=== PATIENT | male | born 1960 | race Caucasian/White ===

== ENCOUNTER 2022-05-07 01:18 | Outpatient (CLI) | payer OTHER, SELFPAY | END 2022-05-07 01:19 | disposition home or self-care (01) | LOC: FBOREF 05-10 11:22 | PROVIDERS: PCP Family Medicine; Visit Provider Family Medicine | DX: R35.0 Frequency of micturition (principal); N39.0 Urinary tract infection, site not specified | CPT/HCPCS: 87086; 87186 ==

== ENCOUNTER 2022-07-31 11:21 | Outpatient (CLI) | payer OTHER, SELFPAY | END 2022-07-31 11:22 | disposition home or self-care (01) | PROVIDERS: PCP Family Medicine; Visit Provider Family Medicine | DX: R39.9 Unspecified symptoms and signs involving the genitourinary system (principal) | CPT/HCPCS: 87086; 87186 ==

== ENCOUNTER 2023-01-09 11:48 | Outpatient (CLI) | payer OTHER, SELFPAY | END 2023-01-09 11:49 | disposition home or self-care (01) | PROVIDERS: PCP Family Medicine; Visit Provider Family Medicine | DX: Z01.818 Encounter for other preprocedural examination (principal) | CPT/HCPCS: 80048; 81015; 84153; 85025; 87086; 87186 ==

== ENCOUNTER 2023-07-26 06:49 | Outpatient (CLI) | payer OTHER, SELFPAY | END 2023-07-26 06:50 | disposition home or self-care (01) | PROVIDERS: PCP Family Medicine; Visit Provider Family Medicine | DX: N39.0 Urinary tract infection, site not specified (principal); R30.0 Dysuria; N31.9 Neuromuscular dysfunction of bladder, unspecified | CPT/HCPCS: 87086; 87186 ==

== ENCOUNTER 2023-07-30 11:11 | Emergency (ER) | payer OTHER, SELFPAY ==
[2023-07-30 11:15] VITALS: BP 103/60; PULSE 75; RESP 18; TEMP 36.2; O2SAT 98; BMI 26.6
[2023-07-30 12:01] VITALS: RESP 16; O2SAT 98
--- NOTE | 2023-07-30 12:04 | ED.GENADULT ---
HPI - General Adult General Date Seen: 07/30/23 Chief complaint: Unspecified Complaint, Adult Stated complaint: Infection R buttock Time Seen by Provider: 07/30/23 11:49 Source: patient, RN notes reviewed and old records reviewed Mode of arrival: wheelchair Limitations: no limitations History of Present Illness HPI narrative: Is a 63-year-old male who is a T4 paraplegic. He was seen in clinic he says on Saturday, at that time had been having fevers, history of UTI, a UA was abnormal and culture grew out Enterobacter which was sensitive to Bactrim. He also was noted to have a pressure ulcer at that time and a referral to wound clinic was placed, that appointment is for tomorrow. He has been taking the Bactrim, felt that the pressure ulcer was doing okay at but the past few days seems to be getting much more red and inflamed. He says his temperatures have been all over the place, as high as 102. He has not had chills or vomiting. Does not smoke or drink. Lives at with his dad. Related Data Previous Rx's Medication Instructions Recorded esomeprazole magnesium 40 mg 40 mg PO QDAY #90 caps 05/10/22 capsule,delayed release simethicone 500 mg capsule 500 mg PO QDAY #30 caps 07/31/22 wheat dextrin 3 gram/3.8 gram oral 3 g PO BID #475 grams 07/31/22 powder (Benefiber Sugar Free (dextrin)) baclofen 20 mg tablet 20 mg PO Q6H PRN for muscle spasm 05/06/23 #360 tabs silver sulfadiazine 1 % topical 1 applic topical BID #50 grams 05/14/23 cream escitalopram oxalate 10 mg tablet 10 mg PO QDAY #90 tabs 07/04/23 (Lexapro) temazepam 30 mg capsule 30 mg PO QHS PRN sleep #30 caps 07/21/23 sulfamethoxazole 800 1 tab PO BID 10 days #20 tabs 07/26/23 mg-trimethoprim 160 mg tablet (Bactrim DS) Allergies Allergy/AdvReac Type Severity Reaction Status Date / Time nitrofurantoin AdvReac Rash Verified 01/09/23 11:31 Review of Systems Status of ROS: Reports: 10 or more systems reviewed and unremarkable except as noted in History and below [facility] Medical History Spasticity ?R25.2 - Cramp and spasm (ICD-10) Frequent loose stools ?R19.7 - Diarrhea, unspecified (ICD-10) Neurogenic bladder ?N31.9 - Neuromuscular dysfunction of bladder, unspecified (ICD-10) GERD (gastroesophageal reflux disease) ?K21.9 - Gastro-esophageal reflux disease without esophagitis (ICD-10) Insomnia ?G47.00 - Insomnia, unspecified (ICD-10) Chronic pain ?G89.29 - Other chronic pain (ICD-10) Paraplegia at T4 level ?G82.20 - Paraplegia, unspecified (ICD-10) Major depression, chronic ?F32.9 - Major depressive disorder, single episode, unspecified (ICD-10) Surgical History History of thoracic spinal fusion ?Z98.1 - Arthrodesis status (ICD-10) History of hernia repair ?Z98.890 - Other specified postprocedural states (ICD-10) ?Z87.19 - Personal history of other diseases of the digestive system (ICD-10) History of colonoscopy (07/10/21) ?Z98.890 - Other specified postprocedural states (ICD-10) Social History Narrative: Disabled, nonsmoker Smoking Status: Never smoker Do you use any of these nicotine containing products: None Second hand tobacco smoke exposure: No How often do you have a drink containing alcohol: never How often do you have six or more drinks on one occasion: Never AUDIT-C Alcohol total score: 0 Non-prescribed substance use: denies use Little interest or pleasure in doing things: not at all Feeling down, depressed, or hopeless: not at all service: No Exam Narrative: Exam Narrative: Vital signs as noted above. Afebrile here. In general, an alert, well-appearing patient. Head: Normocephalic, atraumatic. Eyes: Pupils are equal reactive. Extraocular movements are full. Conjunctivae are normal. ENT: Mucous membranes are moist. Throat is normal. Neck: Supple without lymphadenopathy. Heart: Regular rate and rhythm. No murmur or rub. Lungs: Clear bilaterally. No increased work of breathing, crackles or wheezes. Abdomen: Soft and nontender. No organomegaly. Back: On the right gluteal area there is a pressure ulcer with significant surrounding erythema and induration. Extremities: Well perfused. Atrophied. Neurologic: Patient is alert and oriented to person and place. Speech is fluent. Face is symmetric. Paraplegic. Affect: Normal. Skin: Warm and dry. Well perfused. Const: Vital Signs, click to edit/add: Vital Signs - 24 hr 07/30/23 11:15 07/30/23 12:01 07/30/23 14:35 Temperature 97.1 F L Pulse Rate [Pulse Oximeter] 75 69 Respiratory Rate 18 18 Respiratory Rate [ Right Buttock] 16 Blood Pressure [Le ft Upper Arm] 103/60 99/68 Pulse Oximetry 98 100 Oxygen Delivery Me thod Room Air Room Air Documenting provider has reviewed patient's vital signs: yes Course Course ED Course: Will place an IV and get labs. Previous clinic visits and labs reviewed with urine culture as discussed in the HPI. Would anticipate that Bactrim should provide good coverage for that, less so for cellulitis presuming this is not an isolated MRSA infection. Labs are overall reassuring. His white blood cell count is normal at 10.5, hemoglobin 11.5, baseline unknown. Metabolic panel shows a sodium of 130, potassium 3.1, chloride 95. CO2 is 27, BUN creatinine normal. Blood sugar 120. Lactate is 1, LFTs unremarkable. CRP is elevated at 15.9. UA today shows 2-5 red cells, 5-10 white blood cells. He self caths several times a day. At this time with recent UTI and appropriate antibiotics would not recommend further treatment specifically for the urine. Clearly has a cellulitis noted on the gluteal area. I spoke with our hospitalist today, Dr. Newell, as well as Dr. Lees, who is scheduled to see him in wound clinic tomorrow. Our plan is to give a dose of ertapenem here today. I am going to discharge him home on Levaquin, and then will have him follow-up in the clinic with Dr. Lees tomorrow. If he is not improving, may consider direct admission versus arranging for outpatient IV antibiotics. He is comfortable with that plan. Return at any time for acute worsening such as high fevers, shaking chills, weakness, vomiting or significant changes in the appearance of his gluteal area. Vital Signs Vital signs: Initial Vital Signs Temperature 97.1 F L 07/30/23 11:15 Temperature Source Temporal Artery Scan 07/30/23 11:15 Pulse Rate 75 07/30/23 11:15 Respiratory Rate 18 07/30/23 11:15 Blood Pressure 103/60 07/30/23 11:15 Blood Pressure Mean 74 07/30/23 11:15 Blood Pressure Position Sitting 07/30/23 11:15 Pulse Oximetry 98 07/30/23 11:15 Oxygen Delivery Method Room Air 07/30/23 11:15 Vital Signs Temperature 97.1 F L 07/30/23 11:15 Pulse Rate 75 07/30/23 11:15 Respiratory Rate 18 07/30/23 11:15 Blood Pressure 103/60 07/30/23 11:15 Pulse Oximetry 98 07/30/23 11:15 Oxygen Delivery Method Room Air 07/30/23 11:15 Temperature 97.1 F L 07/30/23 11:15 Pulse Rate 69 07/30/23 14:35 Respiratory Rate 18 07/30/23 14:35 Blood Pressure 99/68 07/30/23 14:35 Pulse Oximetry 100 07/30/23 14:35 Oxygen Delivery Method Room Air 07/30/23 14:35 Medications Administered Medications: Discontinued Medications Generic Name Dose Route Start Last Admin Trade Name Freq PRN Reason Stop Dose Admin Ertapenem 1 gm/ Sodium 100 mls @ 200 mls/hr 07/30/23 13:27 07/30/23 14:14 Chloride IVPB 07/30/23 13:28 Infused ONCE ONE Infusion Medical Decision Making Lab Data Labs: Lab Results 07/30/23 07/30/23 Range/Units 12:24 14:04 WBC 10.46 (4.50-11.00) K/uL RBC 3.72 L (4.30-5.90) m/uL Hgb 11.5 L (13.5-17.5) gm/dL Hct 32.9 L (37.0-53.0) % MCV 88 (80-100) fL MCH 31 (26-34) pg MCHC 35 (32-36) gm/dL RDW Coeff of Christopher 12.3 (11.5-15.5) % Plt Count 261 (140-440) K/uL Neut % (Auto) 81.5 H (42.0-72.0) % Lymph % (Auto) 10.0 L (20-44) % [facility] % (Auto) 7.2 (0.0-11.0) % Eos % (Auto) 0.5 (0.0-7.0) % Baso % (Auto) 0.3 (0.0-3.0) % Neut # (Auto) 8.50 H (1.7-7.0) K/uL Lymph # (Auto) 1.00 (0.90-2.90) K/uL [facility] # (Auto) 0.80 (0.00-0.90) K/UL Eos # (Auto) 0.05 (0.00-0.50) K/uL Baso # (Auto) 0.03 (0.00-0.30) K/uL Abs Immat Gran (auto) 0.05 (0.00-0.30) K/uL Imm/Tot Granulo (auto) 0.5 % Sodium 130 L (135-149) mmol/L Potassium 3.1 L (3.6-5.1) mmol/L Chloride 95 L (96-114) mmol/L Carbon Dioxide 27 (20-32) mmol/L Anion Gap 8 (7-15) mEq/L BUN 8 (7-30) mg/dL Creatinine 0.5 (0.5-1.5) mg/dL Estimated Creat Clear 77.57 Estimated GFR 116 ml/min Glucose 120 H (60-115) mg/dL Lactate 1.0 (0.5-1.9) mmol/L Calcium 8.7 (8.4-10.6) mg/dL Total Bilirubin 0.6 (0.1-1.5) mg/dL Direct Bilirubin 0.2 (0.0-0.5) mg/dL AST 46 H (12-35) U/L ALT 36 (4-50) U/L Alkaline Phosphatase 64 (40-150) U/L C-Reactive Protein 15.9 H (0.5-1.0) mg/dL Total Protein 6.7 (6.0-8.3) g/dL Albumin 3.4 (3.3-5.0) g/dL Urine Color Yellow (Yellow) Urine Appearance Slightly Cloudy A (Clear) Urine pH 6.5 (5.0-8.5) Ur Specific [place] 1.015 (1.000-1.030) Urine Protein Negative (Negative) Urine Glucose (UA) Negative (Negative) Urine Ketones 1+ A (Negative) Urine Blood Negative (Negative) Urine Nitrite Negative (Negative) Urine Bilirubin Negative (Negative) Urine Urobilinogen 1.0 (0.2-1.0) Ur Leukocyte Esterase Trace A (Negative) Urine RBC 2-5 A (0-2) Urine WBC 5-10 A (0-5) Ur Squamous Epith Cells Few (None-Few) Urine Bacteria Few A (None) Discharge Plan Discharge Clinical Impression: Cellulitis, Pressure ulcer Patient Disposition: Home, Self-Care Condition: Stable Instructions: Cellulitis (ED), Pressure Injury (ED) Additional Instructions: Antibiotic as prescribed. Wound care clinic follow-up tomorrow as planned. Dr. Lees will see you and if not improving we will need to make a different plan. If at any time you are significantly worse, have shaking chills, vomiting, weakness or a severely worsening redness/swelling, return to the emergency department. Prescriptions: No Action sulfamethoxazole-trimethoprim [Bactrim DS] 800-160 mg tablet 1 tab PO BID 10 Days Qty: 20 0RF Benefiber Sugar Free (dextrin) 3 gram/3.8 gram powder 3 g PO BID Qty: 475 5RF Rx Instructions: mix into at least 4 oz water or juice before administering simethicone 500 mg capsule 500 mg PO QDAY Qty: 30 5RF esomeprazole magnesium 40 mg capsule,delayed release(DR/EC) 40 mg PO QDAY Qty: 90 3RF baclofen 20 mg tablet 20 mg PO Q6H PRN (Reason: for muscle spasm) Qty: 360 3RF silver sulfadiazine 1 % cream 1 applic topical BID Qty: 50 2RF Rx Instructions: apply a 1.5 mm thickness escitalopram oxalate [Lexapro] 10 mg tablet 10 mg PO QDAY Qty: 90 0RF Rx Instructions: 1 QD temazepam 30 mg capsule 30 mg PO QHS PRN (Reason: sleep) Qty: 30 2RF Follow Up/Referrals: Kj Garcia MD [Primary Care Provider] - [facility] Alone [facility] Info Instructions
[2023-07-30 12:47] LABS: Albumin* 3.4 g/dL (3.3-5.0); Chloride* 95 mmol/L (96-114)
[2023-07-30 12:48] LABS: Potassium* 3.1 mmol/L (3.6-5.1); Sodium* 130 mmol/L (135-149)
[2023-07-30 12:49] LABS: Basophils Absolute Auto 0.03 K/uL (0.00-0.30); Basophils Percent Auto 0.3 % (0.0-3.0); Eosinophils Absolute Auto 0.05 K/uL (0.00-0.50); Eosinophils Percent Auto 0.5 % (0.0-7.0); Hematocrit 32.9 % (37.0-53.0); Hemoglobin* 11.5 gm/dL (13.5-17.5); Immature Granulocytes Abs Auto 0.05 K/uL (0.00-0.30); Immature Granulocytes Pct Auto 0.5 %; Mean Corpuscular HGB Conc 35 gm/dL (32-36); Mean Corpuscular Hemoglobin 31 pg (26-34); Mean Corpuscular Volume 88 fL (80-100); Monocytes Percent Auto 7.2 % (0.0-11.0); Neutrophils Percent Auto 81.5 % (42.0-72.0); Platelet Count* 261 K/uL (140-440); RDW Coefficient of Variation % 12.3 % (11.5-15.5); Red Blood Count 3.72 m/uL (4.30-5.90); White Blood Count* 10.46 K/uL (4.50-11.00)
[2023-07-30 12:50] LABS: Creatinine* 0.5 mg/dL (0.5-1.5); Est. Creatinine Clearance* 77.57; Estimated Glomerular Filt Rate 116 ml/min
[2023-07-30 12:51] LABS: Alanine Aminotransferase* 36 U/L (4-50); Alkaline Phosphatase* 64 U/L (40-150); Anion Gap 8 mEq/L (7-15); Aspartate Amino Transferase* 46 U/L (12-35); Bilirubin Direct* 0.2 mg/dL (0.0-0.5); Bilirubin Total* 0.6 mg/dL (0.1-1.5); Blood Urea Nitrogen* 8 mg/dL (7-30); Calcium* 8.7 mg/dL (8.4-10.6); Carbon Dioxide* 27 mmol/L (20-32); Glucose* 120 mg/dL (60-115); Slide Review Reflex No; Total Protein* 6.7 g/dL (6.0-8.3)
[2023-07-30 13:29] LABS: C Reactive Protein* 15.9 mg/dL (0.5-1.0)
[2023-07-30] MEDS: ERTAPENEM 1 GM in 0.9 % SODIUM CHLORIDE Mini-bag 100 ML IVPB (13:33)
[2023-07-30 14:10] LABS: Appearance Urine Slightly Cloudy (Clear); Bilirubin Urine Negative (Negative); Blood Urine Negative (Negative); Color Urine Yellow (Yellow); Glucose Urine Negative (Negative); Ketones Urine 1+ (Negative); Leukocyte Esterase Urine Trace (Negative); Nitrite Urine Negative (Negative); Protein Urine Negative (Negative); Specific Gravity Urine 1.015 (1.000-1.030); pH Urine 6.5 (5.0-8.5)
[2023-07-30 14:20] LABS: Bacteria Urine Few; Squamous Epithelial Cell Urine Few (None-Few)
[2023-07-30 14:35] VITALS: BP 99/68; PULSE 69; RESP 18; O2SAT 100
== END 2023-07-30 15:10 | disposition home or self-care (01) ==
PROVIDERS: Emergency Provider Emergency Medicine; PCP Family Medicine
DX: L89.310 Pressure ulcer of right buttock, unstageable (principal); L03.317 Cellulitis of buttock
CPT/HCPCS: 36415; 80048; 80076; 81001; 83605; 85025; 86140; 87040; 87086; 96365; 99284; J1335

== ENCOUNTER 2023-07-31 12:55 | Outpatient (CLI) | payer OTHER, SELFPAY | END 2023-07-31 12:56 | disposition home or self-care (01) | LOC: WOUND 12:56 | PROVIDERS: PCP Family Medicine; Visit Provider Surgery | DX: L89.210 Pressure ulcer of right hip, unstageable (principal); L03.90 Cellulitis, unspecified; G82.20 Paraplegia, unspecified | CPT/HCPCS: 11042; 87070; 87186; G0463 ==

== ENCOUNTER 2023-08-02 09:38 | Outpatient (CLI) | payer OTHER, SELFPAY ==
[2023-08-02 11:37] LABS: Basophils Absolute Auto 0.01 K/uL (0.00-0.30); Basophils Percent Auto 0.1 % (0.0-3.0); Eosinophils Absolute Auto 0.17 K/uL (0.00-0.50); Eosinophils Percent Auto 1.5 % (0.0-7.0); Hematocrit 38.2 % (37.0-53.0); Hemoglobin* 12.7 gm/dL (13.5-17.5); Immature Granulocytes Abs Auto 0.24 K/uL (0.00-0.30); Immature Granulocytes Pct Auto 2.2 %; Lymphocytes Percent Auto 11.3 % (20-44); Mean Corpuscular HGB Conc 33 gm/dL (32-36); Mean Corpuscular Hemoglobin 30 pg (26-34); Mean Corpuscular Volume 91 fL (80-100); Monocytes Percent Auto 5.9 % (0.0-11.0); Platelet Count* 308 K/uL (140-440); RDW Coefficient of Variation % 12.5 % (11.5-15.5); Red Blood Count 4.19 m/uL (4.30-5.90)
[2023-08-02 11:48] LABS: Slide Review Reflex No
[2023-08-02 12:01] LABS: C Reactive Protein* 12.3 mg/dL (0.5-1.0)
[2023-08-02 12:31] LABS: Erythrocyte SedimentationRate* 75 mm/hr (2-15)
== END 2023-08-02 09:39 | disposition home or self-care (01) ==
LOC: WOUND 09:39
PROVIDERS: PCP Family Medicine; Visit Provider Nurse Practitioner Family
DX: L89.210 Pressure ulcer of right hip, unstageable (principal); L03.90 Cellulitis, unspecified; G82.20 Paraplegia, unspecified
CPT/HCPCS: 11042; 36415; 72190; 85025; 85651; 86140

== ENCOUNTER 2023-08-03 22:08 | Inpatient (IN) | payer OTHER, SELFPAY ==
[2023-08-03 22:11] VITALS: BP 127/67; PULSE 99; RESP 18; TEMP 37.2; O2SAT 96; BMI 26.6
--- NOTE | 2023-08-03 22:34 | ED.GENADULT ---
HPI - General Adult General Chief complaint: Laceration/Wound Stated complaint: Pressure wound on R leg Time Seen by Provider: 08/03/23 22:23 Source: patient Mode of arrival: wheelchair Limitations: no limitations History of Present Illness HPI narrative: 63-year-old male, T4 paraplegia, presents today with concerns about a buttock ulcer. On 07/26 patient was started on Bactrim for UTI and at that time was noted to have a pressure ulcer. He then came in to the ER on the because he felt that his ulcer was getting more red and inflamed. At that time he was diagnosed with cellulitis and placed on Levaquin. He did follow-up with Wound Care yesterday, do not have that note. However he did have a pelvic x-ray done at that time which showed probable osteomyelitis. He comes back in today because he feels that the area is more red. He also had a fever of 101 earlier today. He has taken ibuprofen. Related Data Home Medications Medication Instructions Recorded Confirmed baclofen 20 mg tablet 20 mg PO Q6H for muscle spasm 08/03/23 08/03/23 psyllium seed (sugar) oral powder 1 tbsp PO DAILY 08/03/23 08/03/23 (Metamucil (sugar) oral powder) simethicone 500 mg capsule 500 mg PO QDAY PRN 08/03/23 08/03/23 temazepam 30 mg capsule 15 - 30 mg PO QHS PRN sleep 08/03/23 08/03/23 wheat dextrin 3 gram/3.8 gram oral 3 g PO BID PRN 08/03/23 08/03/23 powder (Benefiber Sugar Free (dextrin)) Previous Rx's Medication Instructions Recorded esomeprazole magnesium 40 mg 40 mg PO QDAY #90 caps 05/10/22 capsule,delayed release silver sulfadiazine 1 % topical 1 applic topical BID #50 grams 05/14/23 cream escitalopram oxalate 10 mg tablet 10 mg PO QDAY #90 tabs 07/04/23 (Lexapro) Allergies Allergy/AdvReac Type Severity Reaction Status Date / Time nitrofurantoin AdvReac Rash Verified 01/09/23 11:31 Review of Systems Status of ROS: Reports: 6 or more systems reviewed and unremarkable except as noted in History and below [facility] Medical History (Updated 08/03/23 @ 23:09 by Fozia Burch MD) Spasticity ?R25.2 - Cramp and spasm (ICD-10) Frequent loose stools ?R19.7 - Diarrhea, unspecified (ICD-10) Neurogenic bladder ?N31.9 - Neuromuscular dysfunction of bladder, unspecified (ICD-10) GERD (gastroesophageal reflux disease) ?K21.9 - Gastro-esophageal reflux disease without esophagitis (ICD-10) Insomnia ?G47.00 - Insomnia, unspecified (ICD-10) Chronic pain ?G89.29 - Other chronic pain (ICD-10) Paraplegia at T4 level ?G82.20 - Paraplegia, unspecified (ICD-10) Major depression, chronic ?F32.9 - Major depressive disorder, single episode, unspecified (ICD-10) Surgical History (Updated 08/03/23 @ 23:12 by Fozia Burch MD) History of thoracic spinal fusion ?Z98.1 - Arthrodesis status (ICD-10) History of hernia repair ?Z98.890 - Other specified postprocedural states (ICD-10) ?Z87.19 - Personal history of other diseases of the digestive system (ICD-10) History of colonoscopy (07/10/21) ?Z98.890 - Other specified postprocedural states (ICD-10) Social History (Updated 08/03/23 @ 23:11 by Fozia Burch MD) Narrative: Disabled, nonsmoker, 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 DNR/DNI Smoking Status: Never smoker Do you use any of these nicotine containing products: None Second hand tobacco smoke exposure: No How often do you have a drink containing alcohol: never How often do you have six or more drinks on one occasion: Never AUDIT-C Alcohol total score: 0 Non-prescribed substance use: denies use Little interest or pleasure in doing things: not at all Feeling down, depressed, or hopeless: not at all service: No Exam Narrative: Exam Narrative: Well-nourished well-developed patient in no acute distress. Alert and oriented. Answers questions appropriately. Mood and affect are appropriate. Thoughts are goal oriented and rational. No tangential or magical thinking noted. Patient speaks in full sentences without needing to catch their breath. HEENT: Normocephalic atraumatic. Pupils are equally round reactive to light. Extraocular muscles are intact. Conjunctivae are moist without any icterus noted. Moist mucous membranes. Cardiovascular: Heart is regular rate and rhythm. Lungs: Clear to auscultation bilaterally no wheezes rhonchi or rales are appreciated. Patient takes deep breaths without any discomfort. Abdomen: Soft and nontender nondistended with normal bowel sounds. Skin: Well perfused. Buttocks: Patient has a approximately 2 cm ulceration with significant surrounding erythema, induration. Area is hot to touch. He does have 2 outlines surrounding the ulcer the erythema is contained within those outlines. Const: Vital Signs, click to edit/add: Vital Signs - 24 hr 08/03/23 22:11 Temperature 98.9 F Pulse Rate [Right Pulse Oximeter] 99 Respiratory Rate 18 Blood Pressure [Ri ght Upper Arm] 127/67 Pulse Oximetry 96 Oxygen Delivery Me thod Room Air Course Course ED Course: Labs pending. IV vancomycin Rocephin started. Vital Signs Vital signs: Initial Vital Signs Temperature 98.9 F 08/03/23 22:11 Temperature Source Oral 08/03/23 22:11 Pulse Rate 99 08/03/23 22:11 Pulse Rhythm Regular 08/03/23 22:11 Respiratory Rate 18 08/03/23 22:11 Blood Pressure 127/67 08/03/23 22:11 Blood Pressure Mean 87 08/03/23 22:11 Blood Pressure Position Sitting 08/03/23 22:11 Pulse Oximetry 96 08/03/23 22:11 Oxygen Delivery Method Room Air 08/03/23 22:11 Vital Signs Temperature 98.9 F 08/03/23 22:11 Pulse Rate 99 08/03/23 22:11 Respiratory Rate 18 08/03/23 22:11 Blood Pressure 127/67 08/03/23 22:11 Pulse Oximetry 96 08/03/23 22:11 Oxygen Delivery Method Room Air 08/03/23 22:11 Temperature 98.9 F 08/03/23 22:11 Pulse Rate 99 08/03/23 22:11 Respiratory Rate 18 08/03/23 22:11 Blood Pressure 127/67 08/03/23 22:11 Pulse Oximetry 96 08/03/23 22:11 Oxygen Delivery Method Room Air 08/03/23 22:11 Medications Administered Medications: Generic Name Dose Route Start Last Admin Trade Name Freq PRN Reason Stop Dose Admin Ceftriaxone Sodium 1 gm/ 100 mls @ 200 mls/hr 08/03/23 22:53 08/03/23 23:06 Sodium Chloride IVPB 08/03/23 22:54 200 mls/hr ONCE ONE Administration Medical Decision Making MDM Narrative Medical decision making narrative: 63-year-old male with ulcer of the buttocks, x-ray showing osteomyelitis. Did discuss with Dr. Lees who recommends admission and IV antibiotics. Lab Data Lab results reviewed: Yes I reviewed the patient's lab results Labs: Lab Results 08/03/23 Range/Units 22:45 WBC 11.21 H (4.50-11.00) K/uL RBC 3.67 L (4.30-5.90) m/uL Hgb 11.2 L (13.5-17.5) gm/dL Hct 33.4 L (37.0-53.0) % MCV 91 (80-100) fL MCH 31 (26-34) pg MCHC 34 (32-36) gm/dL RDW Coeff of Christopher 12.6 (11.5-15.5) % Plt Count 277 (140-440) K/uL Neut % (Auto) 74.2 H (42.0-72.0) % Lymph % (Auto) 14.5 L (20-44) % [place] % (Auto) 7.4 (0.0-11.0) % Eos % (Auto) 1.7 (0.0-7.0) % Baso % (Auto) 0.1 (0.0-3.0) % Neut # (Auto) 8.30 H (1.7-7.0) K/uL Lymph # (Auto) 1.60 (0.90-2.90) K/uL [place] # (Auto) 0.80 (0.00-0.90) K/UL Eos # (Auto) 0.20 (0.00-0.50) K/uL Baso # (Auto) 0.00 (0.00-0.30) K/uL Abs Immat Gran (auto) 0.20 (0.00-0.30) K/uL Imm/Tot Granulo (auto) 2.1 % Sodium 131 L (135-149) mmol/L Potassium 3.9 (3.6-5.1) mmol/L Chloride 98 (96-114) mmol/L Carbon Dioxide 25 (20-32) mmol/L Anion Gap 8 (7-15) mEq/L BUN 13 (7-30) mg/dL Creatinine 0.6 (0.5-1.5) mg/dL Estimated Creat Clear 77.57 Estimated GFR 110 ml/min Glucose 119 H (60-115) mg/dL Calcium 8.9 (8.4-10.6) mg/dL Discharge Plan Discharge Clinical Impression: Osteomyelitis Patient Disposition: Admitted As Observation Condition: Stable
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
[2023-08-03] MEDS: cefTRIAXone 1 GM in 0.9 % SODIUM CHLORIDE Mini-bag 100 ML IVPB (23:06)
[2023-08-03 23:09] LABS: Chloride* 98 mmol/L (96-114); Potassium* 3.9 mmol/L (3.6-5.1); Sodium* 131 mmol/L (135-149)
[2023-08-03 23:12] LABS: Anion Gap 8 mEq/L (7-15); Carbon Dioxide* 25 mmol/L (20-32); Creatinine* 0.6 mg/dL (0.5-1.5); Est. Creatinine Clearance* 77.57; Estimated Glomerular Filt Rate 110 ml/min
[2023-08-03 23:13] LABS: Blood Urea Nitrogen* 13 mg/dL (7-30); Calcium* 8.9 mg/dL (8.4-10.6); Glucose* 119 mg/dL (60-115)
[2023-08-03 23:16] LABS: Basophils Percent Auto 0.1 % (0.0-3.0); Eosinophils Percent Auto 1.7 % (0.0-7.0); Hematocrit 33.4 % (37.0-53.0); Hemoglobin* 11.2 gm/dL (13.5-17.5); Immature Granulocytes Pct Auto 2.1 %; Lymphocytes Percent Auto 14.5 % (20-44); Mean Corpuscular HGB Conc 34 gm/dL (32-36); Mean Corpuscular Hemoglobin 31 pg (26-34); Mean Corpuscular Volume 91 fL (80-100); Monocytes Percent Auto 7.4 % (0.0-11.0); Neutrophils Percent Auto 74.2 % (42.0-72.0); Platelet Count* 277 K/uL (140-440); RDW Coefficient of Variation % 12.6 % (11.5-15.5); Red Blood Count 3.67 m/uL (4.30-5.90); White Blood Count* 11.21 K/uL (4.50-11.00)
[2023-08-03 23:23] LABS: Slide Review Reflex No
[2023-08-03 23:30] LABS: Procalcitonin* 0.09 ng/mL (<0.50)
[2023-08-04] VITALS (13 sets, daily range): BP systolic 82–108; BP diastolic 43–67; PULSE 57–97; RESP 16–18; TEMP 36–37; O2SAT 92–98; BMI 26.3
[2023-08-04] MEDS: BACLOFEN 10 MG TABLET 20 MG PO ×4 (06:36→23:49)
[2023-08-04] MEDS: OMEPRAZOLE 20 MG CAPSULE DR 40 MG PO (06:36)
--- NOTE | 2023-08-04 06:55 | PC.NURSE ---
pleasant and cooperative. Pt able to transfer himself to his personal w/c. Mepi to right buttock intact, redness remains within the boarder that was outlined in the ED. ? Pts home med in med rm med drawer. ?
[2023-08-04 06:59] LABS: Basophils Absolute Auto 0.02 K/uL (0.00-0.30); Basophils Percent Auto 0.2 % (0.0-3.0); Eosinophils Absolute Auto 0.22 K/uL (0.00-0.50); Eosinophils Percent Auto 2.3 % (0.0-7.0); Hemoglobin* 10.9 gm/dL (13.5-17.5); Immature Granulocytes Pct Auto 2.1 %; Lymphocytes Percent Auto 17.2 % (20-44); Mean Corpuscular HGB Conc 33 gm/dL (32-36); Mean Corpuscular Hemoglobin 30 pg (26-34); Mean Corpuscular Volume 92 fL (80-100); Monocytes Percent Auto 7.3 % (0.0-11.0); Neutrophils Absolute Auto 6.74 K/uL (1.7-7.0); Neutrophils Percent Auto 70.9 % (42.0-72.0); Platelet Count* 253 K/uL (140-440); RDW Coefficient of Variation % 12.7 % (11.5-15.5); Red Blood Count 3.59 m/uL (4.30-5.90)
[2023-08-04 07:16] LABS: Chloride* 104 mmol/L (96-114); Potassium* 3.9 mmol/L (3.6-5.1); Sodium* 134 mmol/L (135-149)
[2023-08-04 07:19] LABS: Anion Gap 6 mEq/L (7-15); Carbon Dioxide* 24 mmol/L (20-32); Creatinine* 0.6 mg/dL (0.5-1.5); Est. Creatinine Clearance* 77.57; Estimated Glomerular Filt Rate 110 ml/min
[2023-08-04 07:20] LABS: Blood Urea Nitrogen* 11 mg/dL (7-30); Glucose* 116 mg/dL (60-115)
[2023-08-04 07:26] LABS: Slide Review Reflex No
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
[2023-08-04] MEDS: LACTATED RINGERS 1000 ML 1,000 ML 100 ML IV ×2 (09:15→12:09)
--- NOTE | 2023-08-04 11:01 | P.GSOP_ITS ---
Operative Note Date of procedure: 08/04/23 Pre-op diagnosis: Right ischial tuberosity wound with worsening cellulitis and failure of outpatient management Post-op diagnosis: Same Type of Procedure: Sharp excisional debridement right ischial pressure ulcer down to muscle and bursa, 3.5 x 6 x 4 cm Indications: The patient is a 63-year-old male T4 paraplegic who has had a wound on his right ischium for approximately 1 month. This has rapidly progressed and developed cellulitis. Outpatient debridement and antibiotics were attempted, however he continues to progress and for this reason he was admitted to the hospital. It was felt that a more aggressive surgical debridement was necessary. I discussed this with the patient who agreed to proceed. Procedure Description: After discussing the risks and benefits of the procedure, the patient signed informed consent.? The operative site was marked and the patient was brought to the operating room and placed on the operating table in left lateral decubitus position.? Care was taken to pad the patient's pressure points.?? The patient wa s then given sedation by anesthesia.?? The operative site was then prepped and draped in the usual sterile fashion.? A time-out was then performed. I began by exploring the wound. This undermined posteriorly as well as anteriorly slightly. The skin at the anterior portion of the wound was white and did not appear perfused. Therefore cautery was used to take a less than 1 cm crescent of skin here. There was no significant purulence or exudate, however the wound bed appeared white and fibrinous. There was no healthy bleeding tissue noted or granulation tissue. I began anteriorly by sharply debriding down to perfuse subcutaneous tissue. The tissue appeared to be thickened and likely scarred from either prior healed ulcer or chronic pressure. Once I reached bleeding tissue, hemostasis was achieved with cautery. I then continued to debride the base of the wound. As I reached the posterior aspect. The tissue was somewhat more boggy. Pressing on the tissue caused cloudy fluid to drain. This was not overtly purulent, however it was slightly more cloudy than tissue edema. Cautery a scissor was then used to sharply debride down until bleeding tissue was encountered. A likely inflamed bursa overlying the ischium was encountered. Clear fluid drained from this. Tissue from this area was sent for culture. The ischium was palpated and was covered by a layer of tissue. This was not completely exposed. Posteriorly I additionally excised a 5 mm crescent of skin, better exposing the undermined area at the posterior aspect of the wound. This was debrided again until bleeding tissue was encountered. Once this was done, hemostasis was achieved with a combination of cautery and Vicryl suture. The wound was scrubbed with chlorhexidine scrub. Surgicel was placed in the wound bed to ensure hemostasis. The wound was then packed with fashion soaked Kerlix. An ABD was then applied. The left wound was also dressed with Mepilex. The patient was then woken and transported to the recovery area in stable condition. ? The patient tolerated the procedure well. Findings: Right ischial wound extending to muscle and bursa, no exposed bone noted. Final wound dimensions measuring 3.5 cm deep, 6 cm long and 4 cm wide. Anesthesia: MAC Surgeon: Stephanie Lees MD Estimated blood loss (mL): 50 Additional Specimen Information: Right ischial wound tissue for culture Condition: stable Disposition: floor
--- NOTE | 2023-08-04 11:50 | W.ANESCHARGE ---
Anesthesia Charges Start Date/Time Anesthesia Start Date: 08/04/23 Anesthesia Start Time: 09:12 Stop Date/Time Anesthesia Stop Date: 08/04/23 Anesthesia Stop Time: 10:52 Summary Emergency: CUSTOMER SERVICE REPRESENTATIVE
[2023-08-04] MEDS: PIPERACILLIN/TAZOBACTAM 3.375 GM in 0.9 % SODIUM CHLORIDE Mini-bag 100 ML IVPB ×3 (12:09→23:49)
--- NOTE | 2023-08-04 14:59 | REH.OT ---
OT: Order received, chart reviewed and patient to OR today, will follow up to eval.
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
--- NOTE | 2023-08-04 19:26 | PC.NURSE ---
End of shift: patient alert and oriented x4. Rates pain 0/10. VSS. RA. Patient repo Q2hrs in bed to help wound healing on either side of buttocks. Dressing changed wet to dry vashe soaked kerlix and covered with ABD at 1830. Patient self evacs in BR, had a reg BM per patient. Patient can self cath when needing to void. Patient tolerating a reg diet after surgery.
[2023-08-04] MEDS: 0.9 % SODIUM CHLORIDE 250 ml IV (23:49)
[2023-08-04] MEDS: SODIUM CHLORIDE 0.9 % (FLUSH) 10 ML SYRINGE 5 ML IVF (23:49)
[2023-08-05 02:54] VITALS: BP 102/50; PULSE 60; RESP 16; TEMP 36.2; O2SAT 96
--- NOTE | 2023-08-05 05:40 | PC.NURSE ---
[id number]: Patient friendly and cooperative. Pain is controlled by internal pain pump. Patient T&R independently. Self-caths d/t neurogenic bladder. Denies N/V. Eating and voiding. Dressing C/D/I.
[2023-08-05] MEDS: OMEPRAZOLE 20 MG CAPSULE DR 40 MG PO (05:51)
[2023-08-05] MEDS: PIPERACILLIN/TAZOBACTAM 3.375 GM in 0.9 % SODIUM CHLORIDE Mini-bag 100 ML IVPB ×4 (05:52→23:34)
[2023-08-05] MEDS: BACLOFEN 10 MG TABLET 20 MG PO ×4 (05:52→23:34)
[2023-08-05 08:30] VITALS: BP 95/42; PULSE 63; RESP 16; RESP 18; TEMP 36.3; O2SAT 97
[2023-08-05] MEDS: PSYLLIUM HUSK (WITH SUGAR) 12 GM PACKET PO (08:50)
[2023-08-05] MEDS: ESCITALOPRAM 10 MG TABLET PO (08:50)
[2023-08-05 09:35] VITALS: BMI 26.3
[2023-08-05 11:00] VITALS: BP 110/59; PULSE 76; RESP 18; TEMP 36; O2SAT 97
--- NOTE | 2023-08-05 11:20 | PM.GSPN ---
Subjective Subjective Date Seen: 08/05/23 Interval history: Antony did well overnight. No issues. Exam Narrative: Exam Narrative: General: No acute distress Wounds: Right buttock wound still with periwound erythema. Wound is clean and dry. Const: Vital Signs, click to edit/add: Vital Signs - 24 hr 08/04/23 11:30 08/04/23 11:45 08/04/23 15:00 Temperature 97.8 F 97.8 F Pulse Rate [Pulse Oximeter] 97 97 97 Respiratory Rate 16 16 16 Blood Pressure [Le ft Arm] 97/57 L 105/53 L Pulse Oximetry 98 98 Oxygen Delivery Me thod Room Air Room Air 08/04/23 15:00 08/04/23 15:00 08/04/23 19:53 Temperature 97.8 F 97.0 F L Pulse Rate [Pulse Oximeter] 97 72 Respiratory Rate 16 16 18 Blood Pressure [Le ft Arm] 108/67 91/50 L Pulse Oximetry 98 98 96 Oxygen Delivery Me thod Room Air Room Air Room Air 08/04/23 21:58 08/04/23 23:54 08/05/23 02:54 Temperature 96.8 F L 97.1 F L Pulse Rate [Pulse Oximeter] 67 60 Respiratory Rate 18 16 16 Blood Pressure [Le ft Arm] 98/54 L 102/50 L Pulse Oximetry 96 92 96 Oxygen Delivery Me thod Room Air Room Air Room Air 08/05/23 08:30 08/05/23 08:30 08/05/23 08:30 Temperature 97.3 F L Pulse Rate [Pulse Oximeter] 63 63 Respiratory Rate 18 16 18 Blood Pressure [Le ft Arm] 95/42 L Pulse Oximetry 97 97 Oxygen Delivery Me thod Room Air Room Air Progress Note:A&P Assessment and plan (1) Cellulitis: Status: Acute (2) Pressure ulcer: Status: Chronic Plan The patient is a 63-year-old male with a she will pressure ulcer on the right buttock, now status post debridement. Cultures are still pending. Still with periwound erythema however appears to be receding. Base of wound is clean. -b.i.d. Wet to dry dressing changes with vashe to right ischial wound -daily dressing changes to left partial-thickness ischial wound with Mepilex -offloading protocol for wound -nutrition consult - done today -continue broad antibiotics until cultures return.
[2023-08-05] MEDS: SODIUM CHLORIDE 0.9 % (FLUSH) 10 ML SYRINGE 5 ML IVF ×2 (11:43→23:33)
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
[2023-08-05 15:00] VITALS: BP 132/69; PULSE 71; RESP 18; TEMP 36.1; O2SAT 98
[2023-08-05 19:00] VITALS: BP 118/68; PULSE 79; RESP 18; TEMP 36.1; O2SAT 97
[2023-08-05 23:00] VITALS: PULSE 77; RESP 16; RESP 18; TEMP 36.1; O2SAT 98
[2023-08-05] MEDS: 0.9 % SODIUM CHLORIDE 250 ml IV (23:34)
[2023-08-06 03:00] VITALS: BP 105/64; PULSE 75; RESP 16; TEMP 35.9; O2SAT 97
--- NOTE | 2023-08-06 05:05 | ED.NURSE ---
[id number] Pt slept on and off during night, pleasant and cooperative. able to make independent movements in bed to shift weight. dressing change completed x1 as ordered, pt tolerated well. denies pain. downey patent and draining, tolerating PO intake.
[2023-08-06] MEDS: BACLOFEN 10 MG TABLET 20 MG PO ×4 (05:38→23:34)
[2023-08-06] MEDS: OMEPRAZOLE 20 MG CAPSULE DR 40 MG PO (05:38)
[2023-08-06] MEDS: PIPERACILLIN/TAZOBACTAM 3.375 GM in 0.9 % SODIUM CHLORIDE Mini-bag 100 ML IVPB ×4 (05:38→23:34)
[2023-08-06] MEDS: SODIUM CHLORIDE 0.9 % (FLUSH) 10 ML SYRINGE 5 ML IVF ×2 (05:39→11:30)
[2023-08-06 08:30] VITALS: BP 115/66; PULSE 64; RESP 16; RESP 18; TEMP 36.1; O2SAT 97; O2SAT 98
[2023-08-06] MEDS: ESCITALOPRAM 10 MG TABLET PO (11:25)
[2023-08-06] MEDS: PSYLLIUM HUSK (WITH SUGAR) 12 GM PACKET PO (11:25)
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
[2023-08-06 15:00] VITALS: BP 107/69; PULSE 114; RESP 16; TEMP 36.8; O2SAT 97
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
[2023-08-06 18:42] LABS: Prealbumin 6.6 mg/dL (20.0-40.0)
[2023-08-06 19:00] VITALS: BP 119/68; PULSE 100; RESP 18; TEMP 36.7; O2SAT 97
[2023-08-06 23:30] VITALS: BP 103/62; PULSE 92; RESP 16; TEMP 36.7; O2SAT 97
[2023-08-06] MEDS: 0.9 % SODIUM CHLORIDE 250 ml IV (23:34)
[2023-08-07 02:32] VITALS: BP 105/60; PULSE 73; RESP 16; TEMP 36.5; O2SAT 97
[2023-08-07] MEDS: PIPERACILLIN/TAZOBACTAM 3.375 GM in 0.9 % SODIUM CHLORIDE Mini-bag 100 ML IVPB ×2 (05:30→14:09)
[2023-08-07] MEDS: BACLOFEN 10 MG TABLET 20 MG PO ×2 (05:30→14:09)
[2023-08-07] MEDS: OMEPRAZOLE 20 MG CAPSULE DR 40 MG PO (06:14)
--- NOTE | 2023-08-07 06:37 | PC.NURSE ---
Pt is oriented to self x3. Afebrile. Pt denies pain, chest pain, pain, SOB, and N/V. Pt?s downey is patent and draining. Pt?s left and right buttock dressings are CDI.?Pt repositions throughout night, pt is able to reposition self and asks for help as needed.?Pt slept intermittently throughout night.?Night uneventful.
[2023-08-07 07:41] LABS: Basophils Absolute Auto 0.01 K/uL (0.00-0.30); Basophils Percent Auto 0.1 % (0.0-3.0); Eosinophils Absolute Auto 0.18 K/uL (0.00-0.50); Eosinophils Percent Auto 2.5 % (0.0-7.0); Immature Granulocytes Abs Auto 0.13 K/uL (0.00-0.30); Immature Granulocytes Pct Auto 1.8 %; Lymphocytes Absolute Auto 1.92 K/uL (0.90-2.90); Lymphocytes Percent Auto 26.2 % (20-44); Mean Corpuscular HGB Conc 32 gm/dL (32-36); Mean Corpuscular Hemoglobin 30 pg (26-34); Mean Corpuscular Volume 94 fL (80-100); Monocytes Percent Auto 7.8 % (0.0-11.0); Neutrophils Absolute Auto 4.53 K/uL (1.7-7.0); Neutrophils Percent Auto 61.6 % (42.0-72.0); Platelet Count* 255 K/uL (140-440); Red Blood Count 3.63 m/uL (4.30-5.90); White Blood Count* 7.34 K/uL (4.50-11.00)
[2023-08-07 07:53] LABS: Chloride* 105 mmol/L (96-114)
[2023-08-07 07:54] LABS: Potassium* 4.6 mmol/L (3.6-5.1); Sodium* 139 mmol/L (135-149)
[2023-08-07 07:56] LABS: Creatinine* 0.5 mg/dL (0.5-1.5); Est. Creatinine Clearance* 77.57; Estimated Glomerular Filt Rate 116 ml/min
[2023-08-07 07:57] LABS: Anion Gap 5 mEq/L (7-15); Blood Urea Nitrogen* 14 mg/dL (7-30); Carbon Dioxide* 29 mmol/L (20-32); Glucose* 105 mg/dL (60-115)
[2023-08-07 08:00] LABS: C Reactive Protein* 2.1 mg/dL (0.5-1.0)
[2023-08-07 08:02] LABS: Slide Review Reflex No
[2023-08-07 08:30] VITALS: BP 100/64; PULSE 70; PULSE 71; RESP 16; TEMP 36.6; O2SAT 97
[2023-08-07] MEDS: SODIUM CHLORIDE 0.9 % (FLUSH) 10 ML SYRINGE 5 ML IVF ×2 (08:57→21:51)
[2023-08-07] MEDS: ESCITALOPRAM 10 MG TABLET PO (08:57)
[2023-08-07] MEDS: LOPERAMIDE HCL 2 MG CAPSULE PO (08:57)
[2023-08-07] MEDS: PSYLLIUM HUSK (WITH SUGAR) 12 GM PACKET PO (08:57)
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
--- NOTE | 2023-08-07 12:07 | PM.GSPN ---
Subjective Subjective Date Seen: 08/07/23 Interval history: Paperwork filled out yesterday for offloading mattress and wound VAC. otherwise no changes or updates. Patient is doing well. Exam Narrative: Exam Narrative: General: no acute distress Skin: Ischial wound with less erythema. Majority the wound with clean healthy granulation tissue. Base with exposed tendinous/bursa tissue. No significant exudate. Const: Vital Signs, click to edit/add: Vital Signs - 24 hr 08/06/23 15:00 08/06/23 15:00 08/06/23 15:00 Temperature 98.3 F Pulse Rate [Pulse Oximeter] 114 H 114 H Respiratory Rate 16 16 16 Blood Pressure [Le ft Arm] 107/69 Pulse Oximetry 97 97 Oxygen Delivery Me thod Room Air Room Air 08/06/23 19:00 08/06/23 23:30 08/06/23 23:30 Temperature 98.1 F 98.0 F Pulse Rate [Pulse Oximeter] 100 92 Respiratory Rate 18 16 16 Blood Pressure [Le ft Arm] 119/68 103/62 Pulse Oximetry 97 97 97 Oxygen Delivery Me thod Room Air Room Air Room Air 08/07/23 02:32 08/07/23 08:30 08/07/23 08:30 Temperature 97.7 F Pulse Rate [Pulse Oximeter] 73 71 Respiratory Rate 16 16 16 Blood Pressure [Le ft Arm] 105/60 Pulse Oximetry 97 97 Oxygen Delivery Me thod Room Air Room Air 08/07/23 08:30 Temperature 98 F Pulse Rate [Pulse Oximeter] 70 Respiratory Rate 16 Blood Pressure [Le ft Arm] 100/64 Pulse Oximetry 97 Oxygen Delivery Me thod Room Air Labs/Imaging Labs Labs: Group G strep growing from culture. Awaiting final sensitivities. 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 -yesterday stressed the importance of offloading. He is likely going to have to take time off of work since he sits for 4 hours of time in his chair. Does have a Roho cushion, however this is likely not sufficient for the amount of time that he sits. -encourage high-protein diet. He has met with Nutrition -working with PT and OT on transfers. -group 2 mattress has been ordered for home -awaiting wound VAC approval. If this arrives by tomorrow wound VAC can be placed at bedside and patient can discharge. He does have a scheduled follow-up in wound clinic on Saturday. -continue antibiotics given persistent redness around the wound. -continue b.i.d. wet-to-dry dressing changes.
[2023-08-07 13:00] VITALS: BP 108/48; PULSE 62; RESP 16; TEMP 36.8; O2SAT 98
[2023-08-07 15:00] VITALS: BP 99/47; PULSE 79; RESP 16; TEMP 36.4; O2SAT 97
--- NOTE | 2023-08-07 16:02 | PC.SOCIAL ---
Discharge planning: Pt plans to discharge home to his father's house in the [facility]. [facility]. [facility] has [facility] a new mattress for the pt. Social work to follow-up as needed.
[2023-08-07] MEDS: AMOXICILLIN/CLAVULANATE 875 mg/125 mg TABLET PO (17:51)
[2023-08-07] MEDS: AMOXICILLIN 250 MG CAPSULE 500 MG PO (17:51)
[2023-08-07 19:00] VITALS: BP 87/39; PULSE 72; RESP 18; TEMP 36.1; O2SAT 97
--- NOTE | 2023-08-07 19:18 | PC.NURSE ---
End of Shift ([id number]): Patient pleasant and cooperative. Afebrile. Denies pain. Dressing to left and right buttock C/D/I. Repositioned in bed. Declined to get up in chair. Ramon patent. Tolerating regular diet with no nausea.
[2023-08-07 23:00] VITALS: BP 108/48; BP 87/39; PULSE 72; RESP 18; TEMP 36.1; O2SAT 97
[2023-08-08] MEDS: BACLOFEN 10 MG TABLET 20 MG PO ×4 (01:15→18:24)
[2023-08-08 03:00] VITALS: BP 114/61; PULSE 70; RESP 16; TEMP 36; O2SAT 97
--- NOTE | 2023-08-08 06:17 | PC.NURSE ---
End of shift report [id number]: Patient alert and oriented x 4. Denies any pain this shift. Wound care to right buttock completed per orders, wound bed appears beefy with 40% slough attached, wound edges well defined. Wet to dry dressing completed, patient tolerated well. Ramon catheter patent, draining clear, pale yellow urine. Patient able to reposition frequently with minimal assistance, currently offloading from side to side to prevent pressure to buttocks.
[2023-08-08] MEDS: OMEPRAZOLE 20 MG CAPSULE DR 40 MG PO (06:55)
[2023-08-08 07:00] VITALS: RESP 16; O2SAT 98
[2023-08-08] MEDS: AMOXICILLIN/CLAVULANATE 875 mg/125 mg TABLET PO ×2 (07:56→18:25)
[2023-08-08] MEDS: AMOXICILLIN 250 MG CAPSULE 500 MG PO ×2 (07:57→18:24)
[2023-08-08 07:59] VITALS: BP 91/42; PULSE 77; RESP 18; TEMP 36.3; O2SAT 94
--- NOTE | 2023-08-08 09:47 | PC.SOCIAL ---
Addendum entered by KENISHA Kim 08/08/23 15:50: Discharge planning: stoneworker met with pt and his father and gave them updates on all the details listed below. Pt was thankful for the information and check-in. Social work to follow-up as needed. Addendum entered by KENISHA Kim 08/08/23 10:17: Discharge planning: stoneworker spoke to the charge nurse on the Med/Surg floor and she is still working on getting the pt's Wound Vac delivered and didn't know if they would get it and have it placed on the pt by today for his appointment tomorrow with the [facility]. It was decided it would be best to let Pearl know that the pt will most likely not discharge by tomorrow, so she can reschedule the pt. stoneworker notified Pearl and she agreed with the plan and said that she would have time in her schedule to meet with the pt on Saturday for a wound check. Pearl said she would follow-up with a time for the pt on Saturday later as she was not in front of a computer to look at her schedule. Social work to follow-up as needed. Original Note: Discharge planning: stoneworker talked with Pearl(nurse with [facility]) and she confirmed that she did order a Level 2 mattress with the hospital frame for the pt from [employer]. She did share that the pt's insurance company is requiring a prior authorization, which she filled out another form for the insurance yesterday per their request. Pearl said that the mattress and frame will be delivered to the pt's father's address in [place], but she thinks it will not be delivered until next week. Pearl also stated that the outpatient plan for the pt is outpatient nursing wound check visits on Mondays and Wednesdays and then a wound check with the provider on Fridays. This would be the plan every week for the pt. Pearl did say that the pt has an appointment scheduled for tomorrow(08/09/23) with the provider for a [facility] check at [facility]. stoneworker explained that this worker would check on a discharge date, as the pt has not had the Wound Vac placed yet and needs that placed before he discharges. Social work to follow-up as needed.
[2023-08-08] MEDS: PSYLLIUM HUSK (WITH SUGAR) 12 GM PACKET PO (10:13)
[2023-08-08] MEDS: ESCITALOPRAM 10 MG TABLET PO (10:13)
[2023-08-08] MEDS: SODIUM CHLORIDE 0.9 % (FLUSH) 10 ML SYRINGE 5 ML IVF (10:14)
[2023-08-08] MEDS: ONDANSETRON ODT 4 MG TAB PO (10:16)
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
[2023-08-08 13:05] VITALS: BP 102/49; PULSE 85; RESP 16; TEMP 36.6; O2SAT 96
[2023-08-08 15:00] VITALS: BP 85/48; PULSE 98; RESP 16; TEMP 36.3; O2SAT 96
--- NOTE | 2023-08-08 15:13 | REH.PT ---
Reassessed sliding board transfers at request of nursing. Nursing concerned about pt sheering on standard board during transfers. Pt willing to try a sliding board with a transfer disk(Beasyglyder). Pt able to complete transfer bed<>w/c on Beasyglyder with sba to keep wheelchair from moving. Pt given information on how to purchase said transfer board. Nursing updated with plan to continue transfers using said board.
--- NOTE | 2023-08-08 16:36 | PC.NURSE ---
shift note: vss stable.pt afeb. Pt 2/sliding board for bathroom transfer. PT contacted and alternate transfer procedure with rotating sliding board intiated. IV patent. LS clr. Pt denies pain. Rt buttock wound with red beefy bed and moderate amount of yellow slough in wound. edges intact. copious amount of serosang drainage on drsg. Wound packed with kerlex saturated in vasche then packed in wound with 2 abd pads to cover site. Lt buttock mepilex intact. charge nurse contacting wound vac center for update on home wound vac status. downey intact.
[2023-08-08] MEDS: ACETAMINOPHEN 325 MG TABLET PO (18:32)
[2023-08-08 19:00] VITALS: BP 105/56; PULSE 95; RESP 16; TEMP 36.2; O2SAT 97
--- NOTE | 2023-08-08 20:04 | PC.NURSE ---
End of Shift: Pt pleasant and cooperative throughout shift, father at bedside for a couple of hours. Ate part of a sweet potato for dinner, stated he did not have much of an appetite because he has not been able to have a bowel movement. Reported pain in his BLE at a 7/10. Improved with tylenol. Ramon catheter remained patent and draining well.
[2023-08-09 00:45] VITALS: BP 97/56; PULSE 69; RESP 18; TEMP 36.4; O2SAT 97
[2023-08-09] MEDS: ACETAMINOPHEN 325 MG TABLET PO ×2 (00:50→08:34)
[2023-08-09] MEDS: BACLOFEN 10 MG TABLET 20 MG PO ×3 (00:51→13:25)
[2023-08-09 03:00] VITALS: BP 93/53; PULSE 69; RESP 16; TEMP 36.3; O2SAT 97
[2023-08-09] MEDS: OMEPRAZOLE 20 MG CAPSULE DR 40 MG PO (06:07)
[2023-08-09 07:00] VITALS: BP 98/52; PULSE 86; RESP 16; TEMP 36.4; O2SAT 95
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
[2023-08-09] MEDS: PSYLLIUM HUSK (WITH SUGAR) 12 GM PACKET PO (08:32)
[2023-08-09] MEDS: ESCITALOPRAM 10 MG TABLET PO (08:33)
[2023-08-09] MEDS: AMOXICILLIN/CLAVULANATE 875 mg/125 mg TABLET PO (08:33)
[2023-08-09] MEDS: SODIUM CHLORIDE 0.9 % (FLUSH) 10 ML SYRINGE 5 ML IVF (08:33)
[2023-08-09] MEDS: AMOXICILLIN 250 MG CAPSULE 500 MG PO (08:33)
--- NOTE | 2023-08-09 09:31 | PC.SOCIAL ---
Addendum entered by KENISHA Kim 08/09/23 13:44: Discharge planning: Pt will be discharging today. before and after school daycare worker provided pt with a copy of The Important Message from Medicare form and contact information for [employer] incase he has questions about his mattress that is being shipped to his father's house. Pt was thankful for the information. Social work to follow-up if needed. Original Note: Discharge planning: Pt is scheduled for a wound check on Saturday, August 12, 2023 at 9:00am [facility]. Pt was informed of this appointment date and time when this worker met with him yesterday. Social work to follow-up as needed.
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
[2023-08-09] MEDS: bisacodyL 10 MG SUPP.RECT PR (10:55)
--- NOTE | 2023-08-09 14:08 | PM.WSCN ---
Date of Consult Consult date: 08/09/23 Requesting Physician: General Surgery Primary Care Provider: Kj Garcia MD Consult Narrative Reason for consult: NPWT-wound care Narrative: Antony Gee is a 63 year old male known to surgery and Wound Services. He is status post debirdement day 5 of right ischial pressure ulcer. Being seen today for initial NPWT bedside application prior to discharge. Patient reported he felt he had too much stool he was assisted by nursing to fully defecate, prior to application of NPWT. Patient will be discharged home to his parents. He is afebrile and feels ready to discharge. Antibiotic treatment has been narrowed based on culture sensitivities. Review of Systems Status of ROS: Reports: 6 or more systems reviewed and unremarkable except as noted in History and below [facility] Medical History (Updated 08/09/23 @ 11:18 by Nichelle Bruce PA-C) Abscess and cellulitis of gluteal region ?L02.31 - Cutaneous abscess of buttock (ICD-10) ?L03.317 - Cellulitis of buttock (ICD-10) Spasticity ?R25.2 - Cramp and spasm (ICD-10) Frequent loose stools ?R19.7 - Diarrhea, unspecified (ICD-10) Neurogenic bladder ?N31.9 - Neuromuscular dysfunction of bladder, unspecified (ICD-10) GERD (gastroesophageal reflux disease) ?K21.9 - Gastro-esophageal reflux disease without esophagitis (ICD-10) Insomnia ?G47.00 - Insomnia, unspecified (ICD-10) Chronic pain ?G89.29 - Other chronic pain (ICD-10) Paraplegia at T4 level ?G82.20 - Paraplegia, unspecified (ICD-10) Major depression, chronic ?F32.9 - Major depressive disorder, single episode, unspecified (ICD-10) Surgical History (Updated 08/03/23 @ 23:12 by Fozia Burch MD) History of thoracic spinal fusion ?Z98.1 - Arthrodesis status (ICD-10) History of hernia repair ?Z98.890 - Other specified postprocedural states (ICD-10) ?Z87.19 - Personal history of other diseases of the digestive system (ICD-10) History of colonoscopy (07/10/21) ?Z98.890 - Other specified postprocedural states (ICD-10) Social History (Updated 08/03/23 @ 23:11 by Fozia Burch MD) Narrative: Disabled, nonsmoker, 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 DNR/DNI What is your current living situation?: I presently have a place to live Problems where you live: no known problems Problems where you live details: na In the past 12 months, utilities in danger of being shut off: no In past 12 months, lack of transportation kept you from medical appts, meetings, work, or getting things needed for daily living: no In the past 12 mos, have been you worried that your food would run out before you had money to buy more?: never true In the past 12 mos, the food you bought just didn't last and you didn't have money to buy more?: never true Highest level of school completed/degree received: Bachelor's degree Smoking Status: Never smoker Do you use any of these nicotine containing products: None Second hand tobacco smoke exposure: No How often do you have a drink containing alcohol: never How often do you have six or more drinks on one occasion: Never AUDIT-C Alcohol total score: 0 Non-prescribed substance use: denies use How often does anyone, including family, friends and others, physically hurt you: never How often does anyone, including family, friends and others, insult or talk down to you: never How often does anyone, including family, friends and others, threaten you with harm: never How often does anyone, including family, friends and others, scream or curse at you: never Little interest or pleasure in doing things: not at all Feeling down, depressed, or hopeless: not at all service: No Meds Home Medications and Allergies Home Medications Medication Instructions Recorded Confirmed Type baclofen 20 mg tablet 20 mg PO Q6H for muscle spasm 08/03/23 08/03/23 History psyllium seed (sugar) oral powder 1 tbsp PO DAILY 08/03/23 08/03/23 History (Metamucil (sugar) oral powder) simethicone 500 mg capsule 500 mg PO QDAY PRN 08/03/23 08/03/23 History temazepam 30 mg capsule 30 mg PO HS PRN sleep 08/03/23 08/04/23 History Allergies Allergy/AdvReac Type Severity Reaction Status Date / Time nitrofurantoin AdvReac Rash Verified 01/09/23 11:31 Exam Narrative: Exam Narrative: General: NAD, ALert Pulmonary: Room air, symmetrical rise, unlabored breathing, speaking in full sentences. MSK: Notable lower extremity contractures. Wound: Right It. Stable. no surrounding erythema or induration. Skin temp WNL. Const: Vital Signs, click to edit/add: Vital Signs - 24 hr 08/08/23 15:00 08/08/23 15:00 08/08/23 15:00 Temperature 97.4 F L Pulse Rate [Pulse Oximeter] 98 98 Respiratory Rate 16 16 16 Blood Pressure [Le ft Arm] Blood Pressure [Ri ght Arm] 85/48 L Pulse Oximetry 96 96 Oxygen Delivery Me thod Room Air Room Air 08/08/23 19:00 08/09/23 00:45 08/09/23 00:45 Temperature 97.1 F L Pulse Rate [Pulse Oximeter] 95 69 Respiratory Rate 16 18 18 Blood Pressure [Le ft Arm] Blood Pressure [Ri ght Arm] 105/56 L Pulse Oximetry 97 97 Oxygen Delivery Me thod Room Air Room Air 08/09/23 00:45 08/09/23 03:00 08/09/23 07:00 Temperature 97.5 F L 97.3 F L 97.6 F Pulse Rate [Pulse Oximeter] 69 69 86 Respiratory Rate 18 16 16 Blood Pressure [Le ft Arm] 97/56 L 93/53 L 98/52 L Blood Pressure [Ri ght Arm] Pulse Oximetry 97 97 95 Oxygen Delivery Me thod Room Air Room Air Room Air 08/09/23 07:00 08/09/23 07:00 Temperature Pulse Rate [Pulse Oximeter] 86 Respiratory Rate 16 16 Blood Pressure [Le ft Arm] Blood Pressure [Ri ght Arm] Pulse Oximetry 95 Oxygen Delivery Me thod Room Air Documenting provider has reviewed patient's vital signs: yes Assessment and Plan Assessment and plan (1) Discharge planning issues: Problem comment: Patient plans to return to live with his father near [place]. He is able and willing to make trips from [place] to [place] for wound care. He is agreeable to temporarily stop working until his wound is healed. He will need a mattress at home, level 2, to minimize pressure ulcers. Status: Acute (2) Abscess and cellulitis of gluteal region: Problem comment: S/p surgical debridement 08/03, Dr. Lees. Based on surgical findings does not appear to have osteomyelitis at this time. Recent cultures from last week show group G strep. Same organism found on surgical cultures this admission. Has been on Bactrim and Levaquin over the last 10 days prior to admission. Treated with Zosyn until August 07 switched to Augmentin 875 b.i.d. plus amoxicillin 500 b.i.d for pansensitive group G strep. Discharged with Augmentin and amoxicillin to complete full 14 day course of antibiotic therapy. Blood cultures negative. Status: Acute (3) Paraplegia at T4 level: Problem comment: Meeta racrafael motorbrunilda, age 29 Status: Chronic (4) Chronic pain: Problem comment: Implanted pain pump with Dilaudid, R abdomen, replaced in February, filled 07/16/23 Status: Chronic (5) Frequent loose stools: Status: Acute (6) Neurogenic bladder: Problem comment: Self catheterizes 6 times per day 14F catheter Ramon catheter in the hospital Status: Chronic (7) Spasticity: Status: Chronic (8) Pressure ulcer: Problem comment: Recommend modifying wheelchair and getting a level 2 mattress which has been ordered prior to discharge. engineering specialist, Christin Contreras, consulted. Wound VAC placed on 08/08 prior to discharge. Has outpatient Wound Care Clinic visit ([place]) on 08/12/2023. Status: Chronic Plan Stable pressure ulcer status post surgical debridement. Patient to discharge home today. Follow-up in wound center with Christin Contreras on 08/12/23 @ 0900. Wound VAC applied. One black foam sponge placed in to wound bed with bridging to right lateral abdomen. Order for home health nursing request was written and sent today. This will not delay his discharge from the hospital. Plan would be for home health to begin working with patient tentatively 08/14/23 to assist in his wound VAC dressing change needs. Does have a Roho wheelchair cushion however patient would benefit from pressure mapping to be completed in the outpatient setting. -stressed the importance of offloading. -encouraged high-protein diet. Patient received nutritional education while he was inpatient. -group 2 mattress has been ordered for home, pending delivery. -discharged on antibiotics. Patient to continue on these as ordered by surgery and hospitalist team. Total Time Spent Total Time Spent: 60 Procedures Additional Procedures Additional Procedure Details: NPWT initial application
--- NOTE | 2023-08-09 15:44 | PC.NURSE ---
Discharge-- Very pleasant and cooperative, alert and oriented patient was discharged to home via wheelchair with father. VSS, though B/P soft at 90s/50s, and pt is afebrile. SPO2 maintained >90% on RA. Pain appears well managed with implanted Dilaudid pump and PRN Tylenol. LS CTA. BS+ x4 and pt had a large formed BM today following a suppository and digital stimulation. He denied nausea and ate a regular diet although appetite remains poor. He was up to the commode and wheelchair via 2 assist with slider board and tolerated it fair. Wound Vac was applied and then reinforced by CANDICE Waller at bedside and pt tolerated procedure well. Pt had roughly 1800ml of clear, yellow urine out this shift via Ramon which was removed and pt cathed himself successfully once since removal. Discharge education was provided including diagnosis info, symptoms to report, wound vac use, medications and follow up plan. SL was removed with tip intact.
== END 2023-08-09 15:30 | disposition home or self-care (01) | DRG 593 ==
LOC: ED 23:28 → MEDSURG 23:32
PROVIDERS: Family Medicine; Surgery; Admitting Provider Family Medicine; Emergency Provider Family Medicine; PCP Family Medicine; Visit Provider Family Medicine
DX: L89.314 Pressure ulcer of right buttock, stage 4 (principal); L03.317 Cellulitis of buttock; Z96.89 Presence of other specified functional implants; K21.9 Gastro-esophageal reflux disease without esophagitis; G47.00 Insomnia, unspecified; F32.9 Major depressive disorder, single episode, unspecified; Z98.1 Arthrodesis status; Z87.440 Personal history of urinary (tract) infections
CPT/HCPCS: 00400; 36415; 51701; 51702; 80048; 82040; 84134; 84145; 85025; 86140; 87040; 87070; 87075; 87205; 93005; 97110; 97161; 97165; 97530; 97535; 99140; 99284; 99285; A9270; J0696; J2543; J2704; J3370; J7030; J7050; J7120

== ENCOUNTER 2023-08-12 09:02 | Outpatient (CLI) | payer OTHER, SELFPAY | END 2023-08-12 09:03 | disposition home or self-care (01) | LOC: WOUND 09:02 | PROVIDERS: PCP Family Medicine; Visit Provider Nurse Practitioner Family | DX: L89.214 Pressure ulcer of right hip, stage 4 (principal); G82.20 Paraplegia, unspecified | CPT/HCPCS: 11043 ==

== ENCOUNTER 2023-08-14 11:22 | Outpatient (CLI) | payer OTHER, SELFPAY | END 2023-08-14 11:23 | disposition home or self-care (01) | LOC: WOUND 11:22 | PROVIDERS: PCP Family Medicine; Visit Provider Nurse Practitioner Family | DX: L89.214 Pressure ulcer of right hip, stage 4 (principal); G82.20 Paraplegia, unspecified | CPT/HCPCS: 97605 ==

== ENCOUNTER 2023-08-16 09:28 | Outpatient (CLI) | payer OTHER, SELFPAY | END 2023-08-16 09:29 | disposition home or self-care (01) | LOC: WOUND 09:28 | PROVIDERS: PCP Family Medicine; Visit Provider Nurse Practitioner Family | DX: M46.28 Osteomyelitis of vertebra, sacral and sacrococcygeal region (principal); L89.214 Pressure ulcer of right hip, stage 4; G82.20 Paraplegia, unspecified | CPT/HCPCS: 11043; 97605 ==

== ENCOUNTER 2023-08-19 14:32 | Outpatient (CLI) | payer OTHER, SELFPAY | END 2023-08-19 14:33 | disposition home or self-care (01) | LOC: WOUND 14:32 | PROVIDERS: PCP Family Medicine; Visit Provider Nurse Practitioner Family | DX: M46.28 Osteomyelitis of vertebra, sacral and sacrococcygeal region (principal); L89.214 Pressure ulcer of right hip, stage 4; G82.20 Paraplegia, unspecified | CPT/HCPCS: 97605 ==

== ENCOUNTER 2023-08-21 12:35 | Outpatient (CLI) | payer OTHER, SELFPAY | END 2023-08-21 12:36 | disposition home or self-care (01) | LOC: WOUND 12:35 | PROVIDERS: PCP Family Medicine; Visit Provider Nurse Practitioner Family | DX: M46.28 Osteomyelitis of vertebra, sacral and sacrococcygeal region (principal); L89.214 Pressure ulcer of right hip, stage 4; G82.20 Paraplegia, unspecified | CPT/HCPCS: 97605 ==

== ENCOUNTER 2023-08-22 13:58 | Outpatient (CLI) | payer OTHER, SELFPAY | END 2023-08-22 13:59 | disposition home or self-care (01) | LOC: WOUND 13:59 | PROVIDERS: PCP Family Medicine; Visit Provider Nurse Practitioner Family | DX: L89.214 Pressure ulcer of right hip, stage 4 (principal); G82.20 Paraplegia, unspecified | CPT/HCPCS: 11043; 87070; 87186; 96372; G0463; J0696 ==

== ENCOUNTER 2023-08-23 07:55 | Outpatient (CLI) | payer OTHER, SELFPAY ==
--- NOTE | 2023-08-23 09:15 | MR_ITS ---
Patient: BARBI BALL Facility:?[facility] Patient ID:?[id number] Site Patient ID:?[id number]. Site :?[id number] Study:?MRI-Pelvis WO/W DOTAREM 15ML-08/23/2023 11:12:19 AM Ordering Physician:SAMSON Final Report: EXAM: MRI OF THE PELVIS, WITHOUT AND WITH IV CONTRAST CLINICAL INDICATION: Right ischial wound. Assess for osteomyelitis. COMPARISON PLAIN FILMS: 08/02/2023. COMPARISON CROSS-SECTIONAL IMAGING STUDIES: 05/31/2021 CT abdomen pelvis. TECHNICAL: Axial, sagittal and coronal T1, PD FS and STIR images of the pelvis. Contrast: Dotarem, 15 mL. FINDINGS: HIP JOINTS: Right: Moderate chondromalacia. Small hip joint effusion. No synovitis. Left: Moderate chondromalacia. Small joint effusion. No synovitis. SOFT TISSUES AND OSSEOUS STRUCTURES: There is a subcutaneous ulceration and deep tract extends to the right ischial tuberosity. There is a small amount of cortical irregularity in the right ischial tuberosity with focal area fatty marrow replacement on T1 weighted imaging. Moderate adjacent intramedullary edema. Findings consistent with early changes of osteomyelitis. Moderate amount of adjacent subcutaneous edema. No subcutaneous abscess. There is a thin tract in the left ischial tuberosity region with decreased T1 and T2 signal and osseous volume loss in the left ischial tuberosity. Findings consistent with sequela from prior infection. No acute left-sided infection. Benign osteochondromas in the anterior acetabular, bilateral intratrochanteric and subtrochanteric regions. No acute fractures. No evidence for avascular necrosis. MUSCULOTENDINOUS STRUCTURES AND BURSAE: Edema in the right gluteus gloria and adductor musculature is more likely infectious/reactive than due to muscle strain. Diffuse muscular atrophy. OTHER JOINTS: Sacroiliac joints are maintained. Pubic symphysis is maintained. INTRAPELVIC CONTENTS: No mass, fluid collection or adenopathy. No inguinal hernia. NEUROVASCULAR STRUCTURES: No abnormality of the proximal femoral or sciatic nerves. No aneurysmal dilatation of the visualize distal aorta. IMPRESSION: 1. Right ischial ulceration with deep tract and findings in the right ischial tuberosity consistent with a small amount of acute osteomyelitis. Adjacent subcutaneous edema. 2. Edema in the right gluteus gloria and adductor musculature is more likely infectious/reactive than due to muscle strain. 3. Changes in the left ischial tuberosity region consistent with sequela from prior infection. 4. Osteoarthritis in both hips without evidence for septic arthritis. 5. Multiple osteochondromas in the bilateral hip region. Dictated by Pete Briggs MD @ 08/26/2023 9:26:12 AM Signed by:?Pete Briggs MD @08/26/2023 9:26:12 AM (Electronic Signature)
== END 2023-08-23 07:56 | disposition home or self-care (01) ==
LOC: WOUND 07:55
PROVIDERS: PCP Family Medicine; Visit Provider Nurse Practitioner Family
DX: L89.214 Pressure ulcer of right hip, stage 4 (principal); G82.20 Paraplegia, unspecified; Z99.3 Dependence on wheelchair
CPT/HCPCS: 11043; 72197; 97605; A9575

== ENCOUNTER 2023-08-23 12:28 | Outpatient (RCR) | payer OTHER, SELFPAY ==
--- NOTE | 2023-10-11 14:46 | REH.OT ---
OT: OT has been awaiting [facility] follow up with home w/c eval and demo trials which was delayed due to patient hospitalized with medical issues. Spoke with Estela Kapoor of [facility] today and the patient went through [facility] to obtain DME with hospitalization. Will discharge patient from OT services.
== END 2023-10-22 09:54 | disposition home or self-care (01) ==
PROVIDERS: PCP Family Medicine; Visit Provider Family Medicine
DX: G82.20 Paraplegia, unspecified (principal); L89.314 Pressure ulcer of right buttock, stage 4; Z51.89 Encounter for other specified aftercare
CPT/HCPCS: 97166

== ENCOUNTER 2023-08-26 14:17 | Outpatient (CLI) | payer OTHER, SELFPAY | END 2023-08-26 14:18 | disposition home or self-care (01) | LOC: WOUND 14:17 | PROVIDERS: PCP Family Medicine; Visit Provider Physician Assistant | DX: L89.214 Pressure ulcer of right hip, stage 4 (principal); G82.20 Paraplegia, unspecified; Z99.3 Dependence on wheelchair | CPT/HCPCS: 96372; 97605; J0696 ==